=== PATIENT | male | born 1980 | race Caucasian/White ===

== ENCOUNTER 2021-11-26 01:24 | Emergency (ER) | payer OTHER ==
[~2021-11-26] VITALS: Ht 182.9 cm; Wt 104.3 kg
[2021-11-26] MEDS ORDERED: DOCU100 PO (02:36)
== END 2021-11-26 02:46 | disposition home or self-care (01) ==
LOC: ER 01:24
DX: K64.4 Residual hemorrhoidal skin tags (principal); F17.200 Nicotine dependence, unspecified, uncomplicated
CPT/HCPCS: 99283; A9270